=== PATIENT | female | born 1970 ===

== ENCOUNTER 2017-01-13 18:00 | Emergency (ER) | payer MEDICARE, MEDICAID ==
[2017-01-13 18:06] VITALS: BMI 34.3
[2017-01-13 18:51] LABS: URINE BILIRUBIN NEGATIVE (NEGATIVE); URINE BLOOD NEGATIVE (NEGATIVE); URINE COLOR Yellow (YELLOW); URINE GLUCOSE (UA) NORMAL (Normal); URINE KETONE NEGATIVE (NEGATIVE); URINE LEUKOCYTE ESTERASE NEG Leu/uL (Negative); URINE PROTEIN NEGATIVE (NEGATIVE); URINE UROBILINOGEN NORMAL mg/dL (0.2-1.0); WBC URINE 1 /hpf (0-5)
--- NOTE | 2017-01-13 19:40 | C.PDOC ---
History Of Present Illness Patient presents to the ED with complaints of diffuse body aches, muscles aches , and "not feeling well." Patient has a history of diabetes and recently began Crestor for elevated cholestrol. Patient notes "sugar is okay" and denies nausea , vomiting, chest pain, or palpitations. Time Seen by Provider: 01/13/17 19:40 Chief Complaint (Nursing): GI Problem History Per: Patient History/Exam Limitations: no limitations Onset/Duration Of Symptoms: Hrs Current Symptoms Are (Timing): Still Present Severity: Moderate Pain Scale Rating Of: 4 Reports Recently: Treated By A Physician Recent travel outside of the [place]: No Past Medical History Reviewed: Historical Data, Nursing Documentation, Vital Signs Vital Signs: Last Vital Signs Temp 99.1 F 01/13/17 18:06 Pulse 91 H 01/13/17 18:06 Resp 18 01/13/17 18:06 BP 153/91 H 01/13/17 18:06 Pulse Ox 96 01/13/17 20:11 - Medical History PMH: Anxiety, Arthritis (RA), Asthma, Back Problems (degenerative disk disease) , Colonic Polyps, Depression, Hypothyroidism, Migraine, Rheumatoid Arthritis Surgical History: Cholecystectomy, Endoscopy - [facility] Procedures CYSTOMETROGRAM (03/07/14) CYSTOSCOPY NEC (03/07/14) ELECTROSHOCK THERAPY NEC (03/25/13) ENDOSC POLYPECTOMY OF LG INTEST (09/13/13) ESOPHAGOGASTRODUODENOSCOPY [EGD] W/CLOSED BIOPSY (08/30/13) INJECT/INFUSE NEC (09/16/13) LOCAL EXCIS BREAST LES (08/21/14) Family History: States: Unknown Family Hx - Social History Hx Tobacco Use: Yes Hx Alcohol Use: No Hx Substance Use: Yes - Immunization History Hx Tetanus Toxoid Vaccination: No Hx Influenza Vaccination: No Hx Pneumococcal Vaccination: No Review Of Systems Constitutional: Positive for: Other (Diffuse body aches, muscle aches, and not feeling well ). Negative for: Fever, Chills Cardiovascular: Negative for: Chest Pain, Palpitations Respiratory: Negative for: Cough, Shortness of Breath Gastrointestinal: Negative for: Nausea, Vomiting, Abdominal Pain, Diarrhea Musculoskeletal: Negative for: Back Pain Skin: Negative for: Rash, Lesions Neurological: Negative for: Weakness Psych: Negative for: Anxiety Physical Exam - Physical Exam Appears: Non-toxic, No Acute Distress Skin: Warm, Dry Head: Normacephalic Eye(s): bilateral: Normal Inspection, PERRL, EOMI Oral Mucosa: Moist Neck: Supple Chest: Symmetrical Cardiovascular: Rhythm Regular Respiratory: No Rales, No Rhonchi, No Wheezing Gastrointestinal/Abdominal: Soft, No Tenderness, No Distention, No Guarding, No Rebound Back: No CVA Tenderness Extremity: Normal ROM, No Tenderness Extremity: Bilateral: Atraumatic, Normal Color And Temperature, Normal ROM Pulses: Left Dorsalis Pedis: Normal, Right Dorsalis Pedis: Normal Neurological/Psych: Oriented x3, Normal Speech, Normal Cognition Gait: Steady ED Course And Treatment - Laboratory Results Result Diagrams: 01/13/17 19:47 01/13/17 19:47 O2 Sat by Pulse Oximetry: 96 (room air ) Pulse Ox Interpretation: Normal Progress Note: Labs were ordered and patient was given IV fluids. Disposition Counseled Patient/Family Regarding: Studies Performed, Diagnosis, Need For Followup - Disposition Referrals: Elisha Pierce MD [Staff Provider] - Disposition: HOME/ ROUTINE Disposition Time: 19:40 Condition: FAIR Additional Instructions: stop the crestor Instructions: Musculoskeletal Pain (ED) Forms: [facility] (Tristanian) - Clinical Impression Clinical Impression: Medication side effect - Scribe Statement The provider has reviewed the documentation as recorded by the Scribe Rena Cox All medical record entries made by the Scribe were at my direction and personally dictated by me. I have reviewed the chart and agree that the record accurately reflects my personal performance of the history, physical exam, medical decision making, and the department course for this patient. I have also personally directed, reviewed, and agree with the discharge instructions and disposition.
[2017-01-13] MEDS ORDERED: Sodium Chloride 0.9% 1,000 ML IV ONE (19:44)
[2017-01-13] MEDS ORDERED: Sodium Chloride 0.9% 1,000 ML ONE (19:49)
[2017-01-13 19:51] LABS: BASO # 0.1 K/uL (0.0-0.2); BASO % 1.2 % (0.0-2.0); EOS # 0.1 K/uL (0.0-0.7); EOS % 1.6 % (0.0-4.0); HEMATOCRIT 36.9 % (34.0-47.0); LYMPH # 2.9 K/uL (1.0-4.3); LYMPH % 39.8 % (20.0-40.0); MEAN CELL VOLUME 92.3 fL (81.0-99.0); MEAN CORPUSCULAR HEMOGLOBIN 31.3 pg (27.0-31.0); MEAN CORPUSCULAR HGB CONC 33.9 g/dL (33.0-37.0); MEAN PLATELET VOLUME 9.5 fL (7.2-11.7); MONO # 0.6 K/uL (0.0-0.8); MONO % 7.8 % (0.0-10.0); RED CELL DISTRIBUTION WIDTH 14.2 % (11.5-14.5); WHITE BLOOD COUNT 7.4 K/uL (4.8-10.8)
[2017-01-13 20:03] LABS: CHLORIDE 108 mmol/L (98-107); POTASSIUM 3.5 mmol/L (3.6-5.2); SODIUM 140 mmol/L (132-148)
[2017-01-13 20:05] LABS: ALB/GLOB RATIO 1.4 (1.0-2.1); ALKALINE PHOSPHATASE 140 U/L (38-126); AST/SGOT 28 U/L (14-36); BILIRUBIN,TOTAL 0.4 mg/dL (0.2-1.3); CARBON DIOXIDE 23 mmol/L (22-30); GFR AFRICAN-AMERICAN > 60; TOTAL PROTEIN 6.6 g/dL (6.3-8.3)
[2017-01-13 20:06] LABS: ALT/SGPT 43 U/L (9-52); BLOOD UREA NITROGEN 8 mg/dL (7-17); CALCIUM 8.9 mg/dl (8.6-10.4); GLUCOSE,RANDOM 142 mg/dL (65-105)
[2017-01-13 20:31] VITALS: BP 145/84; PULSE 83; RESP 20; TEMP 98.9; O2SAT 98
== END 2017-01-13 20:31 | disposition home or self-care (01) ==
LOC: C.ER 18:00
DX: R52 Pain, unspecified (principal); T46.6X5A Adverse effect of antihyperlipidemic and antiarteriosclerotic drugs, initial encounter
CPT/HCPCS: 80053; 81001; 82009; 82550; 83690; 84703; 85025; 96360; 99285; J7040

== ENCOUNTER 2017-06-05 19:31 | Emergency (ER) | payer MEDICARE, MEDICAID ==
[2017-06-05 19:31] VITALS: BMI 34.3
[2017-06-05 19:55] VITALS: BP 125/84; PULSE 86; RESP 16; TEMP 99.1; O2SAT 97
--- NOTE | 2017-06-05 20:21 | C.PDOC ---
History Of Present Illness 47 year old female presents to the ED c/o generalized bodyaches, malaise, and dry cough since yesterday. Patient states she feel like her lungs are bothering , and a "tickle" sensation in her throat. Patient reports she tried calling her doctor but was not able to get an appointment because he was away. Patient states she uses inhaler at home for asthma. Patient denies fever, chills, nausea , vomit, diarrhea, abdominal pain, recent travel, sick contacts. Time Seen by Provider: 06/05/17 19:56 Chief Complaint (Nursing): Cough, Cold, Congestion History Per: Patient History/Exam Limitations: no limitations Onset/Duration Of Symptoms: Hrs Current Symptoms Are (Timing): Still Present Location Of Pain: Throat Sick Contacts (Context): None Associated Symptoms: Fever, Sore Throat, Cough Ear Symptoms: Bilateral: None Recent travel outside of the [place]: No Additional History Per: Patient Past Medical History Reviewed: Historical Data, Nursing Documentation, Vital Signs Vital Signs: Last Vital Signs Temp 99.1 F 06/05/17 19:46 Pulse 86 06/05/17 19:46 Resp 16 06/05/17 19:46 BP 125/84 06/05/17 19:46 Pulse Ox 97 06/05/17 21:17 - Medical History PMH: Anxiety, Arthritis (RA), Asthma, Back Problems (degenerative disk disease) , Colonic Polyps, Depression, Hypercholesterolemia, Hypothyroidism, Migraine, Rheumatoid Arthritis Surgical History: Cholecystectomy, Endoscopy - [facility] Procedures CYSTOMETROGRAM (03/07/14) CYSTOSCOPY NEC (03/07/14) ELECTROSHOCK THERAPY NEC (03/25/13) ENDOSC POLYPECTOMY OF LG INTEST (09/13/13) ESOPHAGOGASTRODUODENOSCOPY [EGD] W/CLOSED BIOPSY (08/30/13) INJECT/INFUSE NEC (09/16/13) LOCAL EXCIS BREAST LES (08/21/14) Family History: States: Unknown Family Hx - Social History Hx Tobacco Use: Yes Hx Alcohol Use: No Hx Substance Use: No - Immunization History Hx Tetanus Toxoid Vaccination: No Hx Influenza Vaccination: No Hx Pneumococcal Vaccination: No Review Of Systems Constitutional: Positive for: Malaise. Negative for: Fever, Chills ENT: Positive for: Throat Pain Cardiovascular: Negative for: Chest Pain Respiratory: Positive for: Cough. Negative for: Shortness of Breath Gastrointestinal: Negative for: Nausea, Vomiting, Abdominal Pain Skin: Negative for: Rash Neurological: Negative for: Weakness, Numbness, Headache Physical Exam - Physical Exam Appears: Non-toxic, No Acute Distress Skin: Normal Color, Warm, Dry Head: Atraumatic, Normacephalic Eye(s): bilateral: Normal Inspection, PERRL, EOMI Ear(s): Bilateral: Normal Nose: No Discharge, No Deformity Oral Mucosa: Moist Throat: Erythema (Mild), No Exudate Neck: Normal ROM, Supple Chest: Symmetrical Cardiovascular: Rhythm Regular, No Murmur Respiratory: Normal Breath Sounds, No Accessory Muscle Use, No Rales, No Rhonchi , No Wheezing Extremity: Normal ROM, No Deformity, No Swelling Neurological/Psych: Oriented x3, Normal Speech Gait: Steady ED Course And Treatment O2 Sat by Pulse Oximetry: 97 (On RA) Pulse Ox Interpretation: Normal Medical Decision Making Medical Decision Making: Impression : dry cough, throat pain In my clinical judgement patient has URI and XRay is not indicated can be treated with oral prednisone. But the patient requested CXR and is also requesting steroid shot. CXR and Solu-medrol IM ordered at patient request CXR viewed by me showing no acute cardiopulmonary disease On re-evaluation, she has no fever and in no respiratory distress. Lungs clear bilaterally. Patient given Rx and instructed to follow up with her PCP. Disposition Counseled Patient/Family Regarding: Diagnosis, Need For Followup, Rx Given - Disposition Referrals: Elisha Pierce MD [Staff Provider] - Disposition: HOME/ ROUTINE Disposition Time: 21:14 Condition: STABLE Additional Instructions: Follow up with your primary medical doctor or clinic in 2-5 days for further evaluation. Take medications as prescribed. Tamiflu twice a day for 5 days and Prednisone daily. Return to the emergency department at any time if symptoms persist or worsen. Prescriptions: Albuterol HFA [Ventolin HFA 90 mcg/actuation (8 g)] 1 puff IH Q4 #1 puff Oseltamivir [Tamiflu] 75 mg PO BID #10 cap Prednisone 50 mg PO DAILY #4 tablet Instructions: Influenza (ED) Forms: [facility] (Kyrgyz) - POA Present On Arrival: None - Clinical Impression Clinical Impression: Influenza - PA / RPG PROGRAMMER / Resident Statement MD/DO has reviewed & agrees with the documentation as recorded. - Scribe Statement The provider has reviewed the documentation as recorded by the Scribe Bonifacio Richey All medical record entries made by the Scribe were at my direction and personally dictated by me. I have reviewed the chart and agree that the record accurately reflects my personal performance of the history, physical exam, medical decision making, and the department course for this patient. I have also personally directed, reviewed, and agree with the discharge instructions and disposition.
[2017-06-05] MEDS ORDERED: MethylPREDNISolone 40 mg Vial IM STA (20:35)
[2017-06-05] MEDS ORDERED: MethylPREDNISolone 40 mg Vial ONE (20:48)
--- NOTE | 2017-06-07 12:44 | RAD ---
Chest x-ray two views History: Cough. Shortness of breath. Comparison: None available. Findings: No focal infiltrate or effusion. Heart size within normal limits. Impression: No focal infiltrate or effusion.
== END 2017-06-05 21:26 | disposition home or self-care (01) ==
LOC: C.ER 19:31
DX: J11.1 Influenza due to unidentified influenza virus with other respiratory manifestations (principal)
CPT/HCPCS: 71046; 82948; 96372; 99284; J2920